=== PATIENT | male | born 1975 | race Caucasian/White ===

== ENCOUNTER 2019-12-23 21:51 | Inpatient (IN) ==
--- NOTE | 2019-12-23 23:13 | History & Physical Report ---
Date of Service December 23, 2019 Assessment & Plan (1) NSTEMI (non-ST elevated myocardial infarction): hypertension, slightly elevated New diagnosis of DM2 AARON on CPAP GERD on PPI Mood disorder, stable Incidental finding of pulmonary nodules on chest x-ray, ongoing tobacco abuse PCU Aspirin, IV heparin Initiate beta-kathy TTE, Cardiology consult RE ACS Check lipid profile, hemoglobin A1c Basal insulin, ISS BG goal [id number], carb count coverage, Diabetic education Nicotine patch PRN Outpatient CT chest imaging for SPN DVT prophylaxis. IV heparin Full code Text document was generated using [employer] voice recognition software. It may contain grammatical or spelling errors. Kindly contact undersigned for clarification of any documentation item in question. Admission and Anticipated Discharge Date Admission Date: December 23, 2019 History of Present Illness Chief Complaint: Chest pain Primary Care Provider: Dr. Luke History obtained from patient and records. Medical history significant for hypertension, AARON on CPAP, GERD, mood disorder, ongoing tobacco abuse. Patient was taking apart PPI no at home this afternoon when he experienced substernal discomfort more severe than usual heartburn with radiation to both elbows with S OB and diaphoreses. No prior episodes in the past. Minimal relief with nitroglycerin given at [facility] emergency room. Initial EKG at [facility] ER without ST elevation. First troponin T was negative. Second troponin T was noted to be 24 (reference range 0-22). Serum glucose noted to be 604. Aspirin and subcutaneous insulin administered at the ER. IV heparin started at the ER for possible ACS. Patient transferred to [facility] for Cardiology services as per patient request. 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 Allergies Allergy/AdvReac Type Severity Reaction Status Date / Time No Known Allergies Allergy Unknown Unverified 10/13/05 11:20 Home Medications Home Medications Medication Instructions Recorded Confirmed Type amlodipine 10 mg PO DAILY 12/23/19 12/23/19 History omeprazole 20 mg PO DAILY 12/23/19 12/23/19 History sertraline 50 mg PO DAILY 12/23/19 12/23/19 History Past Med/Surg History Medical History (Updated 12/24/19 @ 02:09 by Lamine Reynoso MD) Diabetes Social History Preferred Language: Danish Communication Ability: Effective Costume Designer Required: No Beliefs That Will Affect Care: None Current Living Situation: Spouse Other Information That Helps Us Care for You: No Feels Safe at Home: Yes Safety Concerns: Feels Safe At This Time Smoking Status: Light tobacco smoker Hx Alcohol Use: No Hx Substance Use: No Review of Systems Review of Systems: As per HPI, all 10 systems reviewed, all other ROS negative Physical Exam Physical Exam: GENERAL: Comfortable, obese, pleasant, no respiratory distress SKIN: Multiple tattoos, normal color, warm HEENT: Alopecia, pink palpebral conjunctivae, no ptosis, dry buccal mucosa NECK : Supple, short neck, no tenderness CHEST : Decreased breath sounds, expiratory wheezes that cleared on coughing, no tenderness HEART : RRR, no obvious murmurs ABDOMEN: Some distention, nontender EXTREMITIES : No LE swelling/tenderness, no other conspicuous deformities noted NEUROLOGIC : Coherent, no facial asymmetry, no other gross focality Results & Data Results & Data ([facility]) Vital Signs (Past 12 Hours) Vital Signs Pulse Ox 97 12/23/19 23:15 Vital Signs Height Weight Body Mass Index Blood Pressure Blood Pressure Position Temperature Temperature Source 5 ft 10 in 117.9 kg 37.3 158/92 H Sitting 36.5 C Oral 12/23/19 23:29 12/23/19 23:29 12/23/19 23:29 12/23/19 23:29 12/23/19 23:29 12/23/19 23:29 12/23/19 23:29 Pulse Rate Respiratory Rate Pulse Oximetry 70 18 93 12/23/19 23:29 12/23/19 23:29 12/23/19 23:29 Laboratory Results Laboratory Results APTT 48.5 Seconds (21.0-31.0) H* 12/23/19 23:39 PTT Ratio 1.7 12/23/19 23:39 D-Dimer < 190 ug/L FEU (0-500) 12/23/19 23:39 VBG pH 7.43 (7.36-7.41) H 12/23/19 23:39 VBG pCO2 37 mmHg (38-50) L 12/23/19 23:39 VBG pO2 44 mmHg 12/23/19 23:39 VBG HCO3 24 mmol/L 12/23/19 23:39 VBG O2 Saturation 80.9 % 12/23/19 23:39 VBG Base Excess -0.2 mEq/L 12/23/19 23:39 Barometric Pressure 730.3 mm/Hg 12/23/19 23:39 Sodium 135 mmol/L (136-145) L 12/23/19 23:39 Potassium 3.7 mmol/L (3.5-5.1) 12/23/19 23:39 Chloride 101 mmol/L (98-107) 12/23/19 23:39 Carbon Dioxide 25 mmol/L (21-32) 12/23/19 23:39 Anion Gap 9.0 (3-11) 12/23/19 23:39 BUN 12 mg/dl (7-18) 12/23/19 23:39 Creatinine 0.88 mg/dl (0.6-1.4) 12/23/19 23:39 Est Cr Clr Drug Dosing 137.8 ml/min 12/23/19 23:39 Est GFR ( Amer) 121.1 12/23/19 23:39 Est GFR (Non-Af Amer) 104.5 12/23/19 23:39 BUN/Creatinine Ratio 14.0 (10-20) 12/23/19 23:39 Glucose 390 mg/dl (70-99) H* 12/23/19 23:39 POC Glucose 383 mg/dl (70-99) H* 12/24/19 00:01 Calcium 8.6 mg/dl (8.5-10.1) 12/23/19 23:39 Magnesium 1.9 mg/dl (1.8-2.4) 12/23/19 23:39 Total Bilirubin 0.5 mg/dl (0.2-1) 12/23/19 23:39 AST 38 U/L (15-37) H 12/23/19 23:39 ALT 48 U/L (12-78) 12/23/19 23:39 Alkaline Phosphatase 87 U/L (45-117) 12/23/19 23:39 Troponin I 1.290 ng/ml (0-0.045) H* 12/23/19 23:39 Total Protein 7.1 gm/dl (6.4-8.2) 12/23/19 23:39 Albumin 3.7 gm/dl (3.4-5.0) 12/23/19 23:39 Globulin 3.4 gm/dl (2.5-4.0) 12/23/19 23:39 Albumin/Globulin Ratio 1.1 (0.9-2) 12/23/19 23:39 Lipase 172 U/L (73-393) 12/23/19 23:39 Beta-Hydroxybutyric Acd 14.14 mg/dl (0.2-2.81) H 12/23/19 23:39 Procalcitonin < 0.05 ng/ml (0-0.5) 12/23/19 23:39 TSH 0.946 uIu/ml (0.300-4.500) 12/23/19 23:39 Specimen Hemolysis Cancelled 12/23/19 23:39 Diagnostic Findings [facility] (12/23) Chest x-ray : Left upper lung nodules, largest measuring 1.6 cm. EKG as per my interpretation : Rate 75, NSR, normal axis, no ischemia
[2019-12-23] MEDS ORDERED: OXYCODONE HCL IR 5 MG TAB (IMMEDIATE RELEASE) PO PRN (23:15)
[2019-12-23] MEDS ORDERED: ACETAMINOPHEN 325 MG TAB PO PRN (23:15)
[2019-12-23] MEDS ORDERED: LORazepam 0.5 MG/1 ML VIAL IV PRN (23:15)
[2019-12-23] MEDS ORDERED: MoRPHine SULFATE 4 MG/ML 1 ML CARP\\VIAL IV PRN (23:15)
[2019-12-23] MEDS ORDERED: PROMETHAZINE HCL 12.5 MG in SODIUM CHLORIDE 0.9% 50 ML IV PRN (23:15)
[2019-12-23] MEDS ORDERED: NITROGLYCERIN SL 0.4 MG/TAB TAB SL PRN (23:15)
[2019-12-23 23:56] LABS: Base Excess VBG -0.2 mEq/L; Oxygen Saturation VBG 80.9 %; pH VBG 7.43 (7.36-7.41)
[2019-12-24 00:15] LABS: Albumin Level 3.7 gm/dl (3.4-5.0); Calcium 8.6 mg/dl (8.5-10.1); Creatinine Clr Calc Pharmacy 137.8 ml/min; Est GFR (African American) 121.1; Est GFR (Non-African American) 104.5; Magnesium 1.9 mg/dl (1.8-2.4); Potassium 3.7 mmol/L (3.5-5.1)
[2019-12-24 00:22] LABS: D Dimer < 190 ug/L FEU (0-500); Partial Thromboplastin Ratio 1.7
[2019-12-24 00:25] LABS: Partial Thromboplastin Time 48.5 Seconds (21.0-31.0)
[2019-12-24] MEDS ORDERED: DEXTROSE 50% 50 ML SYRINGE IV PRN (00:27)
[2019-12-24] MEDS ORDERED: GLUCOSE 10 TABS/TUBE PO PRN (00:27)
[2019-12-24] MEDS ORDERED: CARBOHYDRATES FOR HYPOGLYCEMIA PO PRN (00:27)
[2019-12-24] MEDS ORDERED: GLUCOSE 40% GEL 15 GM TUBE PO PRN (00:27)
[2019-12-24] MEDS ORDERED: GLUCAGON FOR INJ 1 MG VIAL SQ PRN (00:27)
[2019-12-24] MEDS ORDERED: METOPROLOL TARTRATE 25 MG TAB PO SCH (00:30)
[2019-12-24 00:33] LABS: Albumin Globulin Ratio 1.1 (0.9-2); Bilirubin,Total 0.5 mg/dl (0.2-1); Globulin 3.4 gm/dl (2.5-4.0); Thyroid Stimulating Hormone 0.946 uIu/ml (0.300-4.500); Total Protein 7.1 gm/dl (6.4-8.2); Troponin I 1.29 ng/ml (0-0.045)
[2019-12-24 00:53] LABS: Beta-Hydroxybutyrate 14.14 mg/dl (0.2-2.81)
[2019-12-24] MEDS ORDERED: INSULIN GLARGINE SOLOSTAR 100 UNITS/ML 3 ML PEN SC STA (00:58)
[2019-12-24] MEDS ORDERED: HEPARIN SODIUM/DEXTROSE 25,000 UNITS/500 ML BAG IV SCH (01:00)
[2019-12-24] MEDS ORDERED: Heparin IV Standard *NO* Bolus IV STA (01:00)
[2019-12-24] MEDS: LACTATED RINGER'S 1,000 ML IV SCH ×3 (01:46→19:49)
[2019-12-24] MEDS: INSULIN ASPART 100 UNITS/ML 3 ML PEN SC SCH ×6 (01:48→23:51)
[2019-12-24] MEDS ORDERED: ALBUT/IPRATROP 3MG/0.5MG NEB 3 ML VIAL NEB PRN (02:57)
[2019-12-24 05:49] LABS: Basophils # (auto) 0.07 K/uL (0-0.2); Basophils % (auto) 0.4 %; Eosinophils # (auto) 0.38 K/uL (0-0.5); Eosinophils % (auto) 2.4 %; Hematocrit (blood only) 45.1 % (42-52); Hemoglobin 16.9 g/dL (14.0-18.0); Immature Granulocytes # (auto) 0.06 K/uL (0.00-0.02); Immature Granulocytes % (auto) 0.4 %; Lymphocytes # (auto) 3.63 K/uL (1.2-3.4); Lymphocytes % (auto) 22.5 %; Mean Corpuscular Hemoglobin 30.7 pg (25-34); Mean Corpuscular Hgb Conc 37.5 g/dL (32-36); Mean Platelet Volume 10.8 fL (7.4-10.4); Monocytes # (auto) 1.17 K/uL (0.11-0.59); Monocytes % (auto) 7.3 %; Platelet Count 224 K/uL (130-400); RDW Coefficient of Variation 12.3 % (11.5-14.5); White Blood Count 16.11 K/uL (4.8-10.8)
[2019-12-24 06:04] LABS: Partial Thromboplastin Ratio 1.5; Partial Thromboplastin Time 41.7 Seconds (21.0-31.0)
[2019-12-24 06:13] LABS: BUN Creatinine Ratio 13.3 (10-20); Calcium 8.5 mg/dl (8.5-10.1); Creatinine Clr Calc Pharmacy 155.5 ml/min; Est GFR (African American) 127.2; Est GFR (Non-African American) 109.8; Potassium 3.6 mmol/L (3.5-5.1)
[2019-12-24 06:24] LABS: Troponin I 14.1 ng/ml (0-0.045)
[2019-12-24] MEDS ORDERED: HEPARIN IV BOLUS 4,000 UNITS in SYRINGE 0 ML IV STA (06:43)
[2019-12-24] MEDS ORDERED: POTASSIUM CHLORIDE 20 MEQ TABCR PO STA (06:55)
[2019-12-24] MEDS ORDERED: PERFLUTREN LIPID MICROSPHERE (DEFINITY) IV ONE (07:31)
[2019-12-24] MEDS: PANTOprazole 40 MG TAB PO SCH (07:49)
[2019-12-24] MEDS: AMLODIPINE BESYLATE 5 MG TAB PO SCH (07:51)
[2019-12-24] MEDS: ASPIRIN 81 MG ECTAB PO SCH (07:51)
[2019-12-24] MEDS: SERTRALINE HCL 50 MG TABLET PO SCH (07:52)
[2019-12-24] MEDS ORDERED: PHARMACY GLYCEMIC MGMT CONSULT PRN (08:12)
--- NOTE | 2019-12-24 08:59 | XCELERA ---
[id number]
[2019-12-24] MEDS ORDERED: ATORVASTATIN 40 MG TAB PO SCH (09:00)
[2019-12-24] MEDS ORDERED: METOPROLOL SUCC 25MG EXT REL TAB PO SCH (09:00)
[2019-12-24] MEDS ORDERED: INSULIN GLARGINE SOLOSTAR 100 UNITS/ML 3 ML PEN SC SCH ×2 (09:00→21:00)
[2019-12-24] MEDS ORDERED: NITROGLYCERIN SL 0.4 MG/TAB TAB ONE (09:55)
[2019-12-24] MEDS: NITROGLYCERIN 2% OINTMENT 30GM TUBE ONE ×2 (10:37→10:41)
[2019-12-24] MEDS: METOPROLOL TARTRATE 25 MG TAB PO SCH ×2 (10:38→19:49)
--- NOTE | 2019-12-24 10:38 | Electrocardiogram Report ---
Test Reason : Blood Pressure : / mmHG Vent. Rate : 068 BPM Atrial Rate : 068 BPM P-R Int : 146 ms QRS Dur : 096 ms QT Int : 388 ms P-R-T Axes : 015 075 027 degrees QTc Int : 412 ms Normal sinus rhythm Anterior injury pattern * ACUTE [place] Abnormal ECG Confirmed by Lizandro Cuello ([id number]) on 12/24/2019 10:37:57 AM Referred By: Lamine Reynoso Confirmed By:Lizandro Cuello
[2019-12-24] MEDS: NITROGLYCERIN 2% OINTMENT 30GM TUBE EXT SCH ×3 (10:39→23:10)
--- NOTE | 2019-12-24 10:52 | Electrocardiogram Report ---
Test Reason : Blood Pressure : / mmHG Vent. Rate : 064 BPM Atrial Rate : 064 BPM P-R Int : 148 ms QRS Dur : 094 ms QT Int : 396 ms P-R-T Axes : 047 111 042 degrees QTc Int : 408 ms Sinus rhythm with marked sinus arrhythmia Anterolateral infarct (cited on or before 23-DEC-2019) Abnormal ECG When compared with ECG of 23-DEC-2019 23:14, (unconfirmed) Serial changes of evolving Anterolateral infarct Confirmed by Lizandro Cuello ([id number]) on 12/24/2019 10:52:26 AM Referred By: Lamine Reynoso Confirmed By:Lizandro Cuello
--- NOTE | 2019-12-24 11:07 | Pharmacy Report ---
Glycemic Control Consultation - Date of Service December 24, 2019 - Scope Scope: Glycemic Pharmacist consulted for glycemic control and to write orders per [facility] inpatient glycemic control protocol. - Objective Weight: 117.9 kg Accuchecks BSG (last 24hrs): 12/23/19 12/24/19 12/24/19 23:39 00:01 01:44 Glucose 390 H* POC Glucose 383 H* 368 H* 12/24/19 12/24/19 05:33 06:39 Glucose 297 H POC Glucose 318 H* Laboratory Data (last 24hrs): 12/23/19 12/24/19 23:39 05:33 Potassium 3.7 3.6 Carbon Dioxide 25 25 Anion Gap 9.0 6.0 Creatinine 0.88 0.78 Est Cr Clr Drug Dosing 137.8 155.5 Beta-Hydroxybutyric Acd 14.14 H - Recent Pertinent Medications Outpatient Anti-diabetic Regimen: * n/a * A1c = pending Risk Factors for Insulin Resistance: * Diet: npo - Assessment & Plan Assessment & Plan: ASSESSMENT: * Patient transfer from OSH with NSTEMI. New diagnosis of DM2. Per provider notes BSG at OSH >600 and had been given SQ insulin * Pharmacy consulted to help with glycemic management during admission. 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 BSG trending down at 242 / covered with novolog with lunch and diet resumed * Will add scale for Lantus this evening if BSGs remain elevated PLAN FOR INPATIENT GLYCEMIC CONTROL: * Basal insulin * Lantus 30 units this AM given - plan to add small scale for Lantus HS to give only if BSG >200 * Bolus insulin - tighten * NovoLog per scale ACHS or Q6hrs while NPO * Goal Range: Low 110 mg/dL - High 140 mg/dL * Correction Factor: 20 mg/dL/unit * Nutritional / Prandial insulin per carb ratio of 1 unit per 7 grams CHO consumed * Please note that the plan above was derived based on current level of insulin resistance and hospital stress. These recommendations are appropriate for inpatient admission only. Plan of care upon discharge will need to be reassessed to avoid potential outpatient hypo/hyperglycemia. Thank you.
[2019-12-24] MEDS ORDERED: fentaNYL citrate 100 MCG/2 ML VIAL ONE (11:25)
[2019-12-24] MEDS ORDERED: NiCARDipine HCL INJ 2.5 MG/ML 10 ML AMP ONE (11:25)
[2019-12-24] MEDS ORDERED: HEPARIN (PORCINE) 1000 UNIT/ML 10 ML (CATH LAB USE ONLY) ONE (11:25)
[2019-12-24] MEDS ORDERED: NITROGLYCERIN/D5W 100MCG/ML 20ML SYR ONE (11:26)
[2019-12-24] MEDS ORDERED: MIDAZOLAM HCL 1 MG/ML 2ML VIAL ONE (11:26)
[2019-12-24] MEDS ORDERED: BIVALIRUDIN 250 MG VIAL (CATH LAB ONLY) ONE (11:29)
--- NOTE | 2019-12-24 11:45 | Pre Anesthesia Assessment ---
Date of Service December 24, 2019 Pre Sedation Assessment Vital Signs Temp Pulse Pulse Resp BP Pulse Ox Pulse Ox 12/24/19 08:53 67 12/24/19 08:49 94 12/24/19 08:00 94 12/24/19 07:38 36.5 C 67 19 167/103 H 94 12/24/19 03:04 36.7 C 65 18 143/84 H 95 12/23/19 23:29 36.5 C 70 18 158/92 H 93 12/23/19 23:15 97 Cardiovascular RRR, no murmur, no edema Respiratory normal respiratory effort, lungs clear to auscultation Pre-Sedation Airway Assessment Smoking Status: Light tobacco smoker Mallampati Class: II ASA: ASA2 Procedure Planning Contraindications for Sedation: none Current Medications Reviewed: Yes Notes The planned sedation has been discussed with the patient. Informed Consent was obtained. I have identified the patient, determined the appropriateness of sedation and have assessed the patient immediately prior to the procedure. All medicine(s) and interventions are by my order.
--- NOTE | 2019-12-24 12:24 | Hospitalist Progress Note ---
Date of Service December 24, 2019 Assessment & Plan (1) NSTEMI (non-ST elevated myocardial infarction): NSTEMI Risk factors: H/O HTN, HLP, Tobacco use disorder, DM II, Obesity Troponin:1.2>>14.1 EKG shows: Sinus rhythm with sinus arrhythmia, anterolateral infarct ECHO: pending Trend serial cardiac enzymes, repeat EKG Continue IV heparin Continue Start Aspirin, lipitor, metoprolol Supplemental Oxygen PRN Keep him NPO for now Cardiology consulted Planned for cardiac cath today Hypertension Continue Amlodipine, Metoprolol Monitor BP Hyperlipidemia Continue Lipitor New diagnosis of DM II HbA1C: pending primary special educator/Glycemic Pharmacy consulted Continue Insulin therapy Monitor BGs AARON Continue CPAP at bedtime GERD Continue PPI Mood disorder Continue Sertraline Tobacco use Disorder Refuses Nicotine patch Counselled to quit Lung Nodule Needs follow up as outpatient DVT Px: on IV heparin Code Status Full code Disposition Expect to discharge home when medically stable Admission and Anticipated Discharge Date Admission Date: December 23, 2019 Subjective Patient is seen and examined at bedside Chest pain much improved--rates it 1-2/10 Dyspnea resolved Denies any nausea, dizziness, abd pain Offers no other complaints On IV heparin ggt Planned for Cardiac cath today Review of Systems Review of Systems: All systems reviewed & are unremarkable except as noted in HPI & below Physical Exam Physical Exam: Physical Exam: Vitals signs as noted above General Appearance:Well built and nourished, no apparent distress Head: normocephalic, Atraumatic Eyes: normal inspection, EOMI, PERRL Neck: supple, Trachea midline Respiratory/Chest: Normal breath sounds, CTA, No accessory muscle use Cardiovascular: S1, S2, No murmur Abdomen/GI:Soft, Non tender, Bowel sounds present Extremities/Musculoskelatal:normal inspection, no edema Neurologic/Psych:AAOX3, grossly no focal neurological deficits Skin: normal color, warm, multiple tattoos Results & Data Results & Data ([facility]) Vital Signs (Past 12 Hours) Vital Signs Temp Pulse Pulse Resp BP Pulse Ox Pulse Ox 12/24/19 08:53 67 12/24/19 08:49 94 12/24/19 08:00 94 12/24/19 07:38 36.5 C 67 19 167/103 H 94 12/24/19 03:04 36.7 C 65 18 143/84 H 95 Laboratory Results Short CBC 12/24/19 Range/Units 05:33 WBC 16.11 H (4.8-10.8) K/uL Hgb 16.9 (14.0-18.0) g/dL Hct 45.1 (42-52) % Plt Count 224 (130-400) K/uL BMP 12/23/19 12/24/19 23:39 05:33 Sodium 135 L 136 Potassium 3.7 3.6 Chloride 101 105 Carbon Dioxide 25 25 BUN 12 10 Creatinine 0.88 0.78 Glucose 390 H* 297 H Calcium 8.6 8.5 Cardiac Enzymes 12/23/19 12/24/19 Range/Units 23:39 05:33 Troponin I 1.290 H* 14.100 H* (0-0.045) ng/ml Liver Function 12/23/19 Range/Units 23:39 Total Bilirubin 0.5 (0.2-1) mg/dl AST 38 H (15-37) U/L ALT 48 (12-78) U/L Alkaline Phosphatase 87 (45-117) U/L Albumin 3.7 (3.4-5.0) gm/dl
[2019-12-24] MEDS ORDERED: TICAGRELOR 90 MG TAB PO ONE (12:26)
--- NOTE | 2019-12-24 12:28 | Cardiology Consultation ---
Date of Consultation December 24, 2019 Assessment & Plan (1) NSTEMI (non-ST elevated myocardial infarction): (2) Diabetes mellitus: (3) HTN (hypertension): (4) Tobacco abuse: Patient treated with sublingual nitroglycerin, topical nitrates, and oral metoprolol at bedside. Chest discomfort improved. ST segments have returned to baseline. Echocardiogram reviewed demonstrating LAD territory wall motion abnormality with mildly reduced LV systolic function. Recommend urgent cardiac catheterization. Patient agreeable. Risks, benefits, alternatives to procedure discussed at length. I also discussed patient's clinical situation and treatment recommendations with his via 'facetime' communication. Case discussed with interventional cardiology who is in agreement for urgent cardiac catheterization with PCI at this time. Diabetes management as per internal medicine. Smoking cessation advised. 45 minutes critical care time spent at bedside evaluation, reviewing testing, discussion with consulting physician and family. History of Present Illness Reason for Consultation: NSTEMI Requesting Physician: Dr. Blair Merritt Attending Physician: Kenny Santillan MD History of Present Illness 44-year-old patient presented to [place] emergency department with chest pain. Patient treated with aspirin, nitroglycerin, and IV heparin. Patient reports little improvement of pain while in [place]. He came to [facility] and was treated with IV heparin and aspirin. No chest discomfort reported to nursing overnight, however, patient reports 2/10 chest discomfort upon my arrival to the bedside. He appears comfortable. Initial episode of chest pain occurred in late afternoon 12/23/19. Describes a severe substernal tightness radiating to the bilateral upper extremities associated with nausea, diaphoresis, and shortness of breath. No palpitations, lightheadedness, dizziness, syncope, or near syncope. Patient treated with sublingual nitroglycerin, topical nitrates, and oral metoprolol at the bedside. His discomfort has reduced to 0.5/10. States he is feeling much more comfortable. ECG performed earlier this morning demonstrates "doming" of the anterior ST segments. This subtle ST elevation over Q waves has improved on repeat ECG. Patient denies personal history of diabetes, however, blood sugar markedly elevated on presentation. Denies personal history of coronary disease, congestive heart failure, rheumatic fever as a child, or hypertension. Admits to smoking 1 pack of cigarettes per day. Denies family history of premature coronary artery disease, however, admits to knowing little about his father. No orthopnea, PND, lower extremity edema, or claudication. Allergies Allergy/AdvReac Type Severity Reaction Status Date / Time No Known Allergies Allergy Unknown Unverified 10/13/05 11:20 Home Medications Home Medications Medication Instructions Recorded Confirmed Type amlodipine 10 mg PO DAILY 12/23/19 12/23/19 History omeprazole 20 mg PO DAILY 12/23/19 12/23/19 History sertraline 50 mg PO DAILY 12/23/19 12/23/19 History Patient History Medical History Diabetes Social History Preferred Language: Sami Communication Ability: Effective Senior Software Quality Analyst Required: No Beliefs That Will Affect Care: None Current Living Situation: Spouse Other Information That Helps Us Care for You: No Feels Safe at Home: Yes Safety Concerns: Feels Safe At This Time Smoking Status: Light tobacco smoker Hx Alcohol Use: No Hx Substance Use: No Review of Systems Review of Systems: All systems reviewed & are unremarkable except as noted in HPI & below Physical Exam Constitutional: well developed and + obese Eyes: + anicteric sclerae; no conjunctival abnormality and no scleral abnormality Respiratory: normal respiratory effort; no labored breathing, no retractions and does not use accessory muscles Auscultation: no diminished lung sounds, no crackles, no rales, no rhonchi and no wheezes Cardiovascular: Rate/Rhythm: regular rate and regular rhythm Heart Sounds: normal S1 and normal S2; no murmur and no cardiac rub Vessels: no JVD Extremities: + edema Gastrointestinal (Abdomen): Inspection/Auscultation: normal bowel sounds; abdomen not distended Percussion/Palpation: abdomen soft; abdomen nontender, no guarding and abdomen not rigid Musculoskeletal: Extremities: strength 5/5 throughout; no cyanosis and no clubbing Skin: no rashes, warm and dry Neurologic: moves all extremities; no focal motor deficits Psychiatric: A+Ox3, euthymic affect Results & Data ([facility]) Vital Signs (Past 12 Hours) Vital Signs Temp Pulse Pulse Resp BP Pulse Ox Pulse Ox 12/24/19 08:53 67 12/24/19 08:49 94 12/24/19 08:00 94 12/24/19 07:38 36.5 C 67 19 167/103 H 94 12/24/19 03:04 36.7 C 65 18 143/84 H 95 (1) Diabetes mellitus Diabetes mellitus complication status: with hyperglycemia Diabetes mellitus prison insulin use: without prison use Diabetes mellitus type: type 2 Qualified Code(s): E11.65 - Type 2 diabetes mellitus with hyperglycemia (2) HTN (hypertension) Hypertension type: essential hypertension Qualified Code(s): I10 - Essential (primary) hypertension
--- NOTE | 2019-12-24 12:37 | Post Anesthesia Assessment ---
Date of Service December 24, 2019 Post Sedation Assessment Vital Signs Temp Pulse Pulse Resp BP Pulse Ox Pulse Ox 12/24/19 08:53 67 12/24/19 08:49 94 12/24/19 08:00 94 12/24/19 07:38 36.5 C 67 19 167/103 H 94 12/24/19 03:04 36.7 C 65 18 143/84 H 95 12/23/19 23:29 36.5 C 70 18 158/92 H 93 12/23/19 23:15 97 Recovery Score Activity: Moves 4 extremities Respiration: Deep Breath/Cough Consciousness: Fully Awake Discharge Sedation Level of Care: Phase I Post Sedation Plan On clinical assessment, the patient appears to have tolerated the sedation without complications. Patient is recovering as anticipated. Patient will continue to be monitored by nursing and may be discharged when sedation discharge criteria are met per below protocol. Upon Completions of procedure up to 15 minutes continue every 5 minute vital signs and the P.A.R. score; then discharge to a Phase I or Fast Track to Phase II per the following guidelines: * Discharge Patient to appropriate Phase II area if PAR is 8 or greater or return to pre- procedure baseline. The post - procedure orders will be as directed. * If PAR score is less than 8 or not return to pre-procedure baseline then patient will follow Phase I monitoring till PAR is reached for Phase II. The Phase I may be done in procedure room or may call to secure a Phase I area. * If naloxone or flumazenil are used for reversal, hold in Phase I for continued monitoring from when last reversal dose was given for a minimum of 60 minutes or longer pending the nurse and/or physician discretion of patient condition before discharge to Phase II. Please call the Sedation Physician to re-evaluate and complete post-note for discharge to Phase II area. Do NOT discharge from procedure sedation or Phase 1 until post- sedation evaluation note is complete by procedure /sedation MD Sedation Discharge Instructions to be given to the patient at discharge to home.
--- NOTE | 2019-12-24 12:39 | Post Operative Brief Note ---
Cardiology Brief Post Op Date of Surgery December 24, 2019 Pre & Post Diagnosis Operation Date: 12/24/2019 Acute coronary syndrome/non-ST elevation myocardial infarction Procedure Left heart catheterization, coronary angiography, PCI of occluded proximal left artery descending artery with placement of 4 mm x 18 mm Xience drug-eluting stent. Flavorer Kale Hare MD Humidifier Attendant labeling associate staff Estimated Blood Loss 15 Findings Consistent with Post-Op Diagnosis 44-year-old gentleman, presented with stuttering chest discomfort, and EKG changes concerning for recent anterior wall myocardial infarction. Cardiac catheterization revealed 100% occluded proximal left anterior descending artery with faint collaterals noted from right coronary artery. PCI was performed to proximal left anterior descending artery using 4 mm x 18 mm Xience Shantell drug-eluting stent, this was postdilated with 4 mm NC balloon with excellent angiographic results and sikh of DIOMEDES-3 flow in the distal part of left atrial descending artery. Left circumflex, diagonal vessels and right coronary artery only has minimal to mild diffuse disease of less than 30% severity. Admit to telemetry floor for close observation, patient will be started on aspirin and Brilinta for dual antiplatelet therapy, further risk factor modification and aggressive diabetes control per primary care team. Disposition Disposition: PCU
[2019-12-24] MEDS ORDERED: ACETAMINOPHEN 325 MG TAB PO PRN (12:49)
[2019-12-24] MEDS ORDERED: ONDANSETRON INJ 2 MG/ML 2 ML VIAL IV PRN (12:49)
--- NOTE | 2019-12-24 12:49 | Cardiac Catheterization ---
[facility] Data: Quality Assurance Tester Cardiac Status Clinical evaluation leading to the procedure CAD Presenation: Non STEMI Diagnostic Physicians Name: Kale Hare MD Closure Device Recommendations: Medical Therapy and/or Counseling and PCI without planned CABG Cardiac Cath Procedure Full Procedure Date December 24, 2019 Pre-Procedure Diagnosis Pre-Procedure Diagnosis: Non STEMI AUC Score AUC Score: 9 Post-Procedure Diagnosis Post-Procedure Diagnosis: Successful PCI Procedure(s) Performed Procedure(s) Performed: Coronary Angiography, Left Heart Cath and Drug Eluting Stent Api Architect Kale Hare MD Estimated Blood Loss Estimated Blood Loss: 15 ccs Medication(s) Medication(s): Aspirin and Bivalirudin Medication(s): ticagrelor Summary of Findings 44-year-old gentleman, presented with stuttering chest discomfort, and EKG changes concerning for recent anterior wall myocardial infarction. Cardiac catheterization revealed 100% occluded proximal left anterior descending artery with faint collaterals noted from right coronary artery. PCI was performed to proximal left anterior descending artery using 4 mm x 18 mm Xience Shantell drug-eluting stent, this was postdilated with 4 mm NC balloon with excellent angiographic results and mandaeism of DIOMEDES-3 flow in the distal part of left atrial descending artery. Left circumflex, diagonal vessels and right coronary artery only has minimal to mild diffuse disease of less than 30% severity. Admit to telemetry floor for close observation, patient will be started on aspirin and Brilinta for dual antiplatelet therapy, further risk factor modification and aggressive diabetes control per primary care team. Hemodynamics Rest Ao:: 121/86 Final Ao: 123/84 LV: 113/4 Recommendations Recommendations: Medical Therapy and/or Counseling and PCI without planned CABG Specimens Specimens: None Radiation Exposure (mGy) 3627 Contrast (mls) 240 Procedural Complication(s) None Disposition PCU I attest to the content of the Intraoperative Record and any orders documented therein. Any exceptions are noted below. PG Care Time/CCT Total # of Minutes Spent Total Time Spent with Patient: Total time spent is greater than 50% in coordination of care (as documented) at patient's floor/unit and/or counseling patient:
[2019-12-24 15:08] LABS: Partial Thromboplastin Ratio 1.7
[2019-12-24 15:19] LABS: Partial Thromboplastin Time 48.4 Seconds (21.0-31.0)
[2019-12-24] MEDS: TICAGRELOR 90 MG TAB PO SCH (19:50)
[2019-12-25] MEDS: INSULIN ASPART 100 UNITS/ML 3 ML PEN SC SCH ×5 (04:04→21:27)
[2019-12-25] MEDS: NITROGLYCERIN 2% OINTMENT 30GM TUBE EXT SCH ×2 (04:05→12:47)
[2019-12-25 05:52] LABS: Estimated Average Glucose 298 mg/dl
[2019-12-25 06:41] LABS: Hematocrit (blood only) 43.1 % (42-52); Hemoglobin 15.8 g/dL (14.0-18.0); Mean Corpuscular Hemoglobin 30.6 pg (25-34); Mean Corpuscular Hgb Conc 36.7 g/dL (32-36); Mean Corpuscular Volume 83.4 fL (80-100); Mean Platelet Volume 11.1 fL (7.4-10.4); Platelet Count 218 K/uL (130-400); RDW Coefficient of Variation 12.7 % (11.5-14.5); RDW Standard Deviation 38.2 fL (36.4-46.3); Red Blood Count 5.17 M/uL (4.7-6.1); White Blood Count 12.96 K/uL (4.8-10.8)
[2019-12-25 06:54] LABS: Partial Thromboplastin Ratio 1.1; Partial Thromboplastin Time 29.5 Seconds (21.0-31.0)
[2019-12-25 07:12] LABS: BUN Creatinine Ratio 16.6 (10-20); Calcium 8.5 mg/dl (8.5-10.1); Creatinine Clr Calc Pharmacy 155.2 ml/min; Est GFR (African American) 127.2; Est GFR (Non-African American) 109.8; Magnesium 1.9 mg/dl (1.8-2.4); Potassium 3.4 mmol/L (3.5-5.1)
[2019-12-25] MEDS ORDERED: POTASSIUM CHLORIDE 20 MEQ TABCR PO STA (08:04)
[2019-12-25] MEDS: TICAGRELOR 90 MG TAB PO SCH ×2 (08:27→21:26)
[2019-12-25] MEDS: PANTOprazole 40 MG TAB PO SCH (08:27)
[2019-12-25] MEDS: ASPIRIN 81 MG ECTAB PO SCH (08:28)
[2019-12-25] MEDS: SERTRALINE HCL 50 MG TABLET PO SCH (08:28)
[2019-12-25] MEDS: METOPROLOL TARTRATE 25 MG TAB PO SCH ×2 (08:28→21:25)
[2019-12-25] MEDS: INSULIN GLARGINE SOLOSTAR 100 UNITS/ML 3 ML PEN SC SCH ×2 (08:30→21:24)
[2019-12-25] MEDS: AMLODIPINE BESYLATE 5 MG TAB PO SCH (08:33)
[2019-12-25] MEDS ORDERED: INSULIN GLARGINE SOLOSTAR 100 UNITS/ML 3 ML PEN SC SCH (09:00)
[2019-12-25] MEDS ORDERED: ASPIRIN 81 MG ECTAB PO SCH (09:00)
[2019-12-25] MEDS ORDERED: ATORVASTATIN 40 MG TAB PO SCH (09:00)
--- NOTE | 2019-12-25 09:46 | Pharmacy Report ---
Pharmacy Glycemic Short Note 2 - Date of Service December 25, 2019 - Glycemic Short BSG Results (Last 24 hours): 12/24/19 12/24/19 12/24/19 13:16 16:09 20:00 Glucose POC Glucose 242 H 241 H 227 H 12/24/19 12/25/19 12/25/19 23:35 03:54 05:44 Glucose 213 H POC Glucose 225 H 242 H 12/25/19 07:28 Glucose POC Glucose 215 H ASSESSMENT: 12/24: * POD #1 s/p cardiac catheterization, HbA1c was 12.0% on 12/23/2019 * Patient received total of 85 units of insulin yesterday, 40 basal + 45 bolus * BSGs ranged 225-242 mg/dL post-op * Fasting BSG improved this AM at 213 mg/dL * Will slightly increase basal insulin today per scale and tighten CF/CR 12/23: * Patient transfer from OSH with NSTEMI. New diagnosis of DM2. Per provider notes BSG at OSH >600 and had been given SQ insulin * Pharmacy consulted to help with glycemic management during admission. 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 lab[address] this morning - post [address] BSG trending down at 242 / covered with novolog with lunch and diet resumed * Will add scale for Lantus this evening if BSGs remain elevated PLAN FOR INPATIENT GLYCEMIC CONTROL: * Basal insulin - BID * Lantus 20 units for BSG less than 180 mg/dL * Lantus 25 units for BSG 180-250 mg/dL * Lantus 30 units for BSG greater than 250 mg/dL * Bolus insulin * NovoLog per scale ACHS or Q6hrs while NPO * Goal Range: Low 110 mg/dL - High 140 mg/dL * Correction Factor: 15 mg/dL/unit * Nutritional / Prandial insulin per carb ratio of 1 unit per 5 grams CHO consumed PLAN FOR DISCHARGE: * Patient will require insulin upon discharge given A1c of 12.0%
--- NOTE | 2019-12-25 10:20 | Electrocardiogram Report ---
Test Reason : Blood Pressure : / mmHG Vent. Rate : 071 BPM Atrial Rate : 071 BPM P-R Int : 146 ms QRS Dur : 090 ms QT Int : 406 ms P-R-T Axes : 035 092 030 degrees QTc Int : 441 ms Sinus rhythm with marked sinus arrhythmia Left atrial enlargement Rightward axis Cannot rule out Inferior infarct Anterolateral infarct (cited on or before 23-DEC-2019) Abnormal ECG When compared with ECG of 24-DEC-2019 06:15, Serial changes of evolving Anterolateral infarct Confirmed by Lizandro Cuello ([id number]) on 12/25/2019 10:19:57 AM Referred By: Lamine Reynoso Confirmed By:Lizandro Cuello
--- NOTE | 2019-12-25 10:25 | Electrocardiogram Report ---
Test Reason : Blood Pressure : / mmHG Vent. Rate : 066 BPM Atrial Rate : 066 BPM P-R Int : 146 ms QRS Dur : 096 ms QT Int : 404 ms P-R-T Axes : 020 110 037 degrees QTc Int : 423 ms Normal sinus rhythm Anterolateral infarct (cited on or before 23-DEC-2019) Abnormal ECG When compared with ECG of 24-DEC-2019 10:13, (unconfirmed) Borderline criteria for Inferior infarct are no longer Present ST elevation in the anterolateral leads more prominent Confirmed by Lizandro Cuello ([id number]) on 12/25/2019 10:25:01 AM Referred By: Lamine Reynoso Confirmed By:Lizandro Cuello
--- NOTE | 2019-12-25 10:42 | Electrocardiogram Report ---
Test Reason : Blood Pressure : / mmHG Vent. Rate : 067 BPM Atrial Rate : 067 BPM P-R Int : 150 ms QRS Dur : 084 ms QT Int : 410 ms P-R-T Axes : 039 092 078 degrees QTc Int : 433 ms Normal sinus rhythm Rightward axis Anterior infarct (cited on or before 23-DEC-2019) Abnormal ECG When compared with ECG of 24-DEC-2019 13:04, (unconfirmed) Serial changes of evolving Anterior infarct Present Confirmed by Lizandro Cuello ([id number]) on 12/25/2019 10:42:08 AM Referred By: Lamine Reynoso Confirmed By:Lizandro Cuello
--- NOTE | 2019-12-25 11:27 | Cardiology Progress Note ---
Date of Service December 25, 2019 Assessment & Plan (1) NSTEMI (non-ST elevated myocardial infarction): (2) Diabetes mellitus: (3) HTN (hypertension): (4) Tobacco abuse: I do long discussion with the patient regarding his myocardial infarction and cardiovascular status. Discussed importance of continuing dual antiplatelet therapy for minimum of 1 year post percutaneous intervention in the setting of myocardial infarction. Transition metoprolol tartrate to succinate formulation. Continue high intensity statin therapy. Reduce amlodipine to 5 mg daily to allow for addition of ARNOLDO inhibitor given new onset diabetes and ischemic cardiomyopathy. He appears compensated and euvolemic at this time. Recommend cardiac rehab when available. I discussed post cardiac catheterization activity restrictions as noted below. In approximately 5 days he will begin a regular walking program. Appropriate use of sublingual nitroglycerin reviewed. Diabetes management as per internal medicine. Metformin should be avoided for an additional 24 hours post iodinated contrast injection. I will schedule close cardiac evaluation in 1 week via telemedicine. Subjective Patient seen and examined at the bedside. No recurrent chest discomfort ove rnight. States he is feeling well at this time. Ambulating in the room without exertional symptoms. No recurrent ventricular tachycardia on telemetry. Repeat ECG demonstrates age-indeterminate anterior infarct. Tolerating current medications including aspirin, Brilinta, metoprolol, and atorvastatin. Denies palpitations, lightheadedness, orthopnea, PND, or lower extremity edema. Notes mild right anterior wrist discomfort without ecchymosis or hematoma. Review of Systems Review of Systems: All systems reviewed & are unremarkable except as noted in HPI & below Physical Exam Constitutional: well developed and + obese Eyes: + anicteric sclerae; no conjunctival abnormality and no scleral abnormality Respiratory: normal respiratory effort; no labored breathing, no retractions and does not use accessory muscles Auscultation: no diminished lung sounds, no crackles, no rales, no rhonchi and no wheezes Cardiovascular: Rate/Rhythm: regular rate and regular rhythm Heart Sounds: normal S1 and normal S2; no murmur and no cardiac rub Vessels: no JVD Extremities: + edema Gastrointestinal (Abdomen): Inspection/Auscultation: normal bowel sounds; abdomen not distended Percussion/Palpation: abdomen soft; abdomen nontender, no guarding and abdomen not rigid Musculoskeletal: Extremities: strength 5/5 throughout; no cyanosis and no clubbing Skin: no rashes, warm and dry Palpable right radial pulse. No ecchymosis or hematoma. Neurologic: CN's II-XI intact bilaterally and moves all extremities; no focal motor deficits Psychiatric: A+Ox3, euthymic affect Results & Data Vital Signs (Past 12 Hours) Vital Signs Temp Pulse Pulse Resp BP Pulse Ox 12/25/19 08:00 74 12/25/19 07:06 36.5 C 78 20 108/66 95 12/25/19 03:57 36.7 C 70 18 130/79 96 12/25/19 02:19 71 12/25/19 01:11 18 97 12/24/19 23:28 36.9 C 78 18 117/81 97 (1) Diabetes mellitus Diabetes mellitus complication status: with hyperglycemia Diabetes mellitus fdc insulin use: without fdc use Diabetes mellitus type: type 2 Qualified Code(s): E11.65 - Type 2 diabetes mellitus with hyperglycemia (2) HTN (hypertension) Hypertension type: essential hypertension Qualified Code(s): I10 - Essential (primary) hypertension
[2019-12-25] MEDS: lisinopriL 5 MG TAB PO SCH (11:49)
--- NOTE | 2019-12-25 11:58 | Hospitalist Progress Note ---
Date of Service December 25, 2019 Assessment & Plan (1) NSTEMI (non-ST elevated myocardial infarction): NSTEMI S/P PCI: KARISSA to proximal left anterior descending artery. POD #1 Risk factors: H/O HTN, HLP, Tobacco use disorder, DM II, Obesity Troponin:1.2>>14.1>>200>>22 EKG shows: Sinus rhythm with sinus arrhythmia, anterolateral infarct ECHO: Left ventricle systolic function is mildly reduced. Ejection fraction 45 to 50%. There is moderate size wall motion abnormality involving the a nteroseptal, anterior wall, inferior septum, and apex with hypokinesis to akinesis of the segments. There is mild mitral regurgitation. There is trace tricuspid regurgitation. Doppler findings do not suggest pulmonary hypertension. 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 AARON Continue CPAP at bedtime GERD Continue PPI Mood disorder Continue Sertraline Tobacco use Disorder Refuses Nicotine patch Counselled to quit Lung Nodule Needs follow up as outpatient DVT Px: Heparin SQ Code Status Full code Disposition Expect to discharge home when medically stable Script needed upon discharge: 1) OneTouch Verio test strips 2) OneTouch Delica lancets 3) BD Ginger pen needles - 4mm (5/32") x 32G (0.23mm) Admission and Anticipated Discharge Date Admission Date: December 23, 2019 Subjective Patient is seen and examined at bedside Doing well today States chest pain resolved Denies any SOB, nausea, dizziness, abd pain Offers no other complaints Review of Systems Review of Systems: All systems reviewed & are unremarkable except as noted in HPI & below Physical Exam Physical Exam: Physical Exam: Vitals signs as noted above General Appearance:Well built and nourished, no apparent distress Head: normocephalic, Atraumatic Eyes: normal inspection, EOMI, PERRL Neck: supple, Trachea midline Respiratory/Chest: Normal breath sounds, CTA, No accessory muscle use Cardiovascular: S1, S2, No murmur Abdomen/GI:Soft, Non tender, Bowel sounds present Extremities/Musculoskelatal:normal inspection, no edema Neurologic/Psych:AAOX3, grossly no focal neurological deficits Skin: normal color, warm, multiple tattoos Results & Data Results & Data ([facility]) Vital Signs (Past 12 Hours) Vital Signs Temp Pulse Pulse Resp BP Pulse Ox 12/25/19 11:34 36.8 C 71 18 115/81 98 12/25/19 08:00 74 12/25/19 07:06 36.5 C 78 20 108/66 95 12/25/19 03:57 36.7 C 70 18 130/79 96 12/25/19 02:19 71 12/25/19 01:11 18 97 Laboratory Results Short CBC 12/25/19 Range/Units 05:44 WBC 12.96 H (4.8-10.8) K/uL Hgb 15.8 (14.0-18.0) g/dL Hct 43.1 (42-52) % Plt Count 218 (130-400) K/uL BMP 12/25/19 05:44 Sodium 136 Potassium 3.4 L Chloride 105 Carbon Dioxide 24 BUN 13 Creatinine 0.78 Glucose 213 H Calcium 8.5 Cardiac Enzymes 12/24/19 12/24/19 12/25/19 Range/Units 15:42 16:50 05:44 Troponin I Cancelled > 200.000 H* 22.200 H*
[2019-12-25] MEDS: HEPARIN SOD 5,000 UNIT/0.5 ML VIAL SQ SCH (21:25)
[2019-12-26 06:50] LABS: Hematocrit (blood only) 42.9 % (42-52); Hemoglobin 15.4 g/dL (14.0-18.0); Mean Corpuscular Hemoglobin 29.9 pg (25-34); Mean Corpuscular Hgb Conc 35.9 g/dL (32-36); Mean Corpuscular Volume 83.3 fL (80-100); Mean Platelet Volume 10.6 fL (7.4-10.4); Platelet Count 186 K/uL (130-400); RDW Coefficient of Variation 12.6 % (11.5-14.5); RDW Standard Deviation 38.1 fL (36.4-46.3); Red Blood Count 5.15 M/uL (4.7-6.1); White Blood Count 10.46 K/uL (4.8-10.8)
[2019-12-26 07:22] LABS: BUN Creatinine Ratio 18.8 (10-20); Calcium 8.7 mg/dl (8.5-10.1); Creatinine Clr Calc Pharmacy 146.6 ml/min; Potassium 3.6 mmol/L (3.5-5.1)
[2019-12-26] MEDS: INSULIN GLARGINE SOLOSTAR 100 UNITS/ML 3 ML PEN SC SCH (08:22)
[2019-12-26] MEDS: INSULIN ASPART 100 UNITS/ML 3 ML PEN SC SCH ×2 (08:23→12:24)
[2019-12-26] MEDS: TICAGRELOR 90 MG TAB PO SCH (08:25)
[2019-12-26] MEDS: METOPROLOL TARTRATE 25 MG TAB PO SCH (08:26)
[2019-12-26] MEDS: HEPARIN SOD 5,000 UNIT/0.5 ML VIAL SQ SCH (08:26)
[2019-12-26] MEDS: SERTRALINE HCL 50 MG TABLET PO SCH (08:28)
[2019-12-26] MEDS: PANTOprazole 40 MG TAB PO SCH (08:28)
[2019-12-26] MEDS: ASPIRIN 81 MG ECTAB PO SCH (08:28)
[2019-12-26] MEDS: lisinopriL 5 MG TAB PO SCH (08:36)
[2019-12-26] MEDS ORDERED: ATORVASTATIN 40 MG TAB PO SCH (09:00)
[2019-12-26] MEDS ORDERED: AMLODIPINE BESYLATE 5 MG TAB PO SCH (09:00)
--- NOTE | 2019-12-26 09:18 | Pharmacy Report ---
Pharmacy Glycemic Short Note 2 - Date of Service December 26, 2019 - Glycemic Short BSG Results (Last 24 hours): 12/25/19 12/25/19 12/25/19 11:05 16:28 20:53 Glucose POC Glucose 249 H 205 H 138 H 12/26/19 12/26/19 06:20 07:31 Glucose 165 H POC Glucose 171 H ASSESSMENT: 12/25: * POD #2 S/P cardiac catheterization * Patient received total of 103 units of insulin yesterday; 55 of basal, 48 prandial/correctional * Fasting this morning improved to 165 mg/dL, continuing to trend down * Discharge recommendations as below; will need close follow-up with outpatient provider to titrate insulin as needed 12/24: * POD #1 s/p cardiac catheterization, HbA1c was 12.0% on 12/23/2019 * Patient received total of 85 units of insulin yesterday, 40 basal + 45 bolus * BSGs ranged 225-242 mg/dL post-op * Fasting BSG improved this AM at 213 mg/dL * Will slightly increase basal insulin today per scale and tighten CF/CR 12/23: * Patient transfer from OSH with NSTEMI. New diagnosis of DM2. Per provider notes BSG at OSH >600 and had been given SQ insulin * Pharmacy consulted to help with glycemic management during admission. 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 morning - post laboratory phlebotomist BSG trending down at 242 / covered with novolog with lunch and diet resumed * Will add scale for Lantus this evening if BSGs remain elevated PLAN FOR INPATIENT GLYCEMIC CONTROL: * Basal insulin - BID * Lantus 20 units for BSG less than 180 mg/dL * Lantus 25 units for BSG 180-250 mg/dL * Lantus 30 units for BSG greater than 250 mg/dL * Bolus insulin * NovoLog per scale ACHS or Q6hrs while NPO * Goal Range: Low 110 mg/dL - High 140 mg/dL * Correction Factor: 15 mg/dL/unit * Nutritional / Prandial insulin per carb ratio of 1 unit per 5 grams CHO consumed PLAN FOR DISCHARGE: * A1c is greater than or equal to 10% consider triple therapy with metformin + basal insulin + (GLP1-RA OR prandial insulin). May need to continue additional antidiabetic agent based on patient specific factors (efficacy, hypo risk, weight gain/loss, side effects, cost) Recommend: oMetformin XR 500mg PO daily with evening meal. Typically the XR formulation of metformin is better tolerated than the immediate release formulation. Continue to titrate metformin dosing upwards as recommended. Dosage increases should be made in increments of 500 mg weekly, up to 2,000 mg/day PO, given in divided doses. Doses above 2000 mg/day may be better tolerated if divided and given 3 times per day with meals. 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 oBasal insulin: Glargine 35 units sq daily or if BID dosing preferred 17 units BID, This will need adjusted by outpatient provider GPL1RA: This will be based off of insurance coverage and patient preference of weekly vs daily injection OR Prandial insulin: Novolog 5-7 units with meals (should be followed and adjusted by outpatient provider) Correctional insulin per scale given in addition to prandial insulin above: Moderate dose SSI Blood Sugar 70-150 administer 0 units Blood Sugar 151-200 administer 2 units Blood Sugar 201-250 administer 4 units Blood Sugar 251-300 administer 6 units Blood Sugar 301-350 administer 8 units Blood Sugar 351-400 administer 10 units Blood Sugar >400 administer 12 units and call MD Support Patient Self-Management Healthy Lifestyle (diet, exercise, and smoking cessation) Disease self-management (SMBG) Prevention of complications (BP, Lipid goals, Immunizations) Consider outpatient Diabetes Self-Management Education & Support Most patients on multiple-dose insulin (MDI) should SMBG Prior to meals and snacks At bedtime Prior to exercise When they suspect low blood glucose After treating low blood glucose until they are normoglycemic Prior to critical tasks such as driving Occasionally postprandially
--- NOTE | 2019-12-26 10:08 | Cardiology Progress Note ---
Date of Service December 26, 2019 Assessment & Plan (1) NSTEMI (non-ST elevated myocardial infarction): (2) Diabetes mellitus: (3) HTN (hypertension): (4) Tobacco abuse: Continue dual antiplatelet therapy for minimum of 1 year post percutaneous intervention in the setting of myocardial infarction. Transition metoprolol tartrate to succinate formulation. Continue high intensity statin therapy. Discontinue amlodipine. Lisinopril 5 mg daily added secondary to newly diagnosed diabetes and ischemic cardiomyopathy. Patient appears compensated and euvolemic at this time. Recommend cardiac rehab when available. I discussed post cardiac catheterization activity restrictions as noted below. In approximately 5 days he will begin a regular walking program. Appropriate use of sublingual nitroglycerin reviewed. Diabetes management as per internal medicine. I will schedule close cardiac evaluation in 1 week via telemedicine. Post cardiac catheterization/PCI restrictions: ACTIVITY RECOMMENDATIONS: It is common to feel weak and fatigue for a few days. * Do not drive or operate any motorized equipment for the next three days. * Limit stair usage (2 or 3 trips a day only) for the next three days. * Do not lift anything heavier than 10 pounds for the next three days. * Do not engage in vigorous exercise or any sports for the next five days. * You may shower the day after your procedure, but do not immerse the area for three days. Cleanse the site gently with soap and water. SPECIAL CARE INSTRUCTIONS: * You may replace the pressure dressing or band-aid the morning after the procedure. * After your procedure, it is normal to have a small bruise or small lump at the site. Examine your site daily for any change in the bruise or lump, redness, swelling, drainage or numbness. Notify your doctor if any change. BLEEDING: * If there is a small amount of bleeding at the site, lie down and apply firm pressure with a clean cloth for ten minutes. When the bleeding stops, lie quietly keeping the procedure limb straight for six hours. Notify your doctor as soon as possible. * If the bleeding does not stop after ten minutes or if there is a large amount of bleeding or spurting, call 911 immediately. Continue to lie down and hold firm pressure until help arrives. SKIN IRRITATION: * You may experience some redness and/or swelling in the area where radiation was administered. If any skin irritation occurs, please contact your family physician. Subjective Patient seen and examined the bedside. Denies chest pain or shortness of breath. Remains in sinus rhythm on telemetry. No recurrent PVCs or ventricular tachycardia. Tolerating medications. Blood pressure well controlled. Anxious for discharge. Offers no concerns/complaints at this time. Review of Systems Review of Systems: All systems reviewed & are unremarkable except as noted in HPI & below Physical Exam Constitutional: well developed and + obese Eyes: + anicteric sclerae; no conjunctival abnormality and no scleral abnormality Respiratory: normal respiratory effort; no labored breathing, no retractions and does not use accessory muscles Auscultation: no diminished lung sounds, no crackles, no rales, no rhonchi and no wheezes Cardiovascular: Rate/Rhythm: regular rate and regular rhythm Heart Sounds: normal S1 and normal S2; no murmur and no cardiac rub Vessels: no JVD Extremities: + edema Gastrointestinal (Abdomen): Inspection/Auscultation: normal bowel sounds; abdomen not distended Percussion/Palpation: abdomen soft; abdomen nontender, no guarding and abdomen not rigid Musculoskeletal: Extremities: strength 5/5 throughout; no cyanosis and no clubbing Skin: no rashes, warm and dry Neurologic: CN's II-XI intact bilaterally and moves all extremities; no focal motor deficits Psychiatric: A+Ox3, euthymic affect Results & Data Vital Signs (Past 12 Hours) Vital Signs Temp Pulse Pulse Resp BP Pulse Ox 12/26/19 09:19 62 12/26/19 08:35 70 119/80 12/26/19 07:41 36.5 C 67 20 97/61 L 95 12/26/19 03:50 36.5 C 67 18 95/62 L 97 12/25/19 23:58 36.5 C 61 18 103/67 98 12/25/19 22:49 59 L 16 96 (1) Diabetes mellitus Diabetes mellitus type: type 2 Diabetes mellitus roasterman insulin use: without roasterman use Diabetes mellitus complication status: with hyperglycemia Qualified Code(s): E11.65 - Type 2 diabetes mellitus with hyperglycemia (2) HTN (hypertension) Hypertension type: essential hypertension Qualified Code(s): I10 - Essential (primary) hypertension
--- NOTE | 2019-12-26 11:08 | Hospitalist Progress Note ---
Date of Service December 26, 2019 Assessment & Plan (1) NSTEMI (non-ST elevated myocardial infarction): NSTEMI S/P PCI: KARISSA to proximal left anterior descending artery. POD #1 Risk factors: H/O HTN, HLP, Tobacco use disorder, DM II, Obesity Troponin:1.2>>14.1>>200>>22 EKG shows: Sinus rhythm with sinus arrhythmia, anterolateral infarct ECHO: Left ventricle systolic function is mildly reduced. Ejection fraction 45 to 50%. There is moderate size wall motion abnormality involving the a nteroseptal, anterior wall, inferior septum, and apex with hypokinesis to akinesis of the segments. There is mild mitral regurgitation. There is trace tricuspid regurgitation. Doppler findings do not suggest pulmonary hypertension. 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 Pharmacy consulted Continue Insulin therapy Monitor BGs Needs close follow up with PCP AARON Continue CPAP at bedtime GERD Continue PPI Mood disorder Continue Sertraline Tobacco use Disorder Refuses Nicotine patch Counselled to quit Lung Nodule Needs follow up as outpatient DVT Px: Heparin SQ Code Status Full code Disposition Plan to discharge home today Admission and Anticipated Discharge Date Admission Date: December 23, 2019 Subjective Patient is seen and examined at bedside No new complaints No events overnight Denies any Chest pain, SOB, nausea, dizziness, abd pain Discussed with cardiology today Review of Systems Review of Systems: All systems reviewed & are unremarkable except as noted in HPI & below Physical Exam Physical Exam: Physical Exam: Vitals signs as noted above General Appearance:Well built and nourished, no apparent distress Head: normocephalic, Atraumatic Eyes: normal inspection, EOMI, PERRL Neck: supple, Trachea midline Respiratory/Chest: Normal breath sounds, CTA, No accessory muscle use Cardiovascular: S1, S2, No murmur Abdomen/GI:Soft, Non tender, Bowel sounds present Extremities/Musculoskelatal:normal inspection, no edema Neurologic/Psych:AAOX3, grossly no focal neurological deficits Skin: normal color, warm, multiple tattoos Results & Data Results & Data (MN) Vital Signs (Past 12 Hours) Vital Signs Temp Pulse Pulse Resp BP Pulse Ox 12/26/19 11:00 37.0 C 64 19 106/74 98 12/26/19 09:19 62 12/26/19 08:35 70 119/80 12/26/19 07:41 36.5 C 67 20 97/61 L 95 12/26/19 03:50 36.5 C 67 18 95/62 L 97 12/25/19 23:58 36.5 C 61 18 103/67 98 Laboratory Results Short CBC 12/26/19 Range/Units 06:20 WBC 10.46 (4.8-10.8) K/uL Hgb 15.4 (14.0-18.0) g/dL Hct 42.9 (42-52) % Plt Count 186 (130-400) K/uL BMP 12/26/19 06:20 Sodium 137 Potassium 3.6 Chloride 105 Carbon Dioxide 25 BUN 16 Creatinine 0.83 Glucose 165 H Calcium 8.7
--- NOTE | 2019-12-26 11:33 | Discharge Summary ---
Date of Service December 26, 2019 Admission HPI Per Admitting Provider History obtained from patient and records. Medical history significant for hypertension, AARON on CPAP, GERD, mood disorder, ongoing tobacco abuse. Patient was taking apart PPI no at home this afternoon when he experienced substernal discomfort more severe than usual heartburn with radiation to both elbows with S OB and diaphoreses. No prior episodes in the past. Minimal relief with nitroglycerin given at [facility] emergency room. Initial EKG at [facility] ER without ST elevation. First troponin T was negative. Second troponin T was noted to be 24 (reference range 0-22). Serum glucose noted to be 604. Aspirin and subcutaneous insulin administered at the ER. IV heparin started at the ER for possible ACS. Patient transferred to [facility] for Cardiology services as per patient request. 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 Admission Exam Per Admitting Provider Physical Exam Physical Exam: GENERAL: Comfortable, obese, pleasant, no respiratory distress SKIN: Multiple tattoos, normal color, warm HEENT: Alopecia, pink palpebral conjunctivae, no ptosis, dry buccal mucosa NECK : Supple, short neck, no tenderness CHEST : Decreased breath sounds, expiratory wheezes that cleared on coughing, no tenderness HEART : RRR, no obvious murmurs ABDOMEN: Some distention, nontender EXTREMITIES : No LE swelling/tenderness, no other conspicuous deformities noted NEUROLOGIC : Coherent, no facial asymmetry, no other gross focality Principal Diagnosis Acute myocardial infarction Diabetes mellitus--new diagnosis Lung Nodule Discharge Data Allergies Allergy/AdvReac Type Severity Reaction Status Date / Time No Known Allergies Allergy Unknown Unverified 10/13/05 11:20 Consultations 12/24/19 00:27 Consult Cardiology Routine 12/24/19 12:49 Consult Cardiac Rehabilitation Routine Procedures Performed Operation Date: 12/24/19 11:30 Actual Procedures p Aspiration/PCI w/KARISSA for Stemi - Kale Hare MD s Cineradiography w/Routine Exam - Kale Hare MD s Cath, Left with Cors and Vent - Kale Hare MD ECHO: Left ventricle systolic function is mildly reduced. Ejection fraction 45 to 50%. There is moderate size wall motion abnormality involving the anteroseptal, anterior wall, inferior septum, and apex with hypokinesis to akinesis of the segments. There is mild mitral regurgitation. There is trace tricuspid regurgitation. Doppler findings do not suggest pulmonary hypertension. Cardiac cath: Findings Consistent with Post-Op Diagnosis 44-year-old gentleman, presented with stuttering chest discomfort, and EKG changes concerning for recent anterior wall myocardial infarction. Cardiac catheterization revealed 100% occluded proximal left anterior descending artery with faint collaterals noted from right coronary artery. PCI was performed to proximal left anterior descending artery using 4 mm x 18 mm Xience Shantell drug-eluting stent, this was postdilated with 4 mm NC balloon with excellent angiographic results and evangelical of DIOMEDES-3 flow in the distal part of left atrial descending artery. Left circumflex, diagonal vessels and right coronary artery only has minimal to mild diffuse disease of less than 30% severity. Ordered Studies 12/24/19 11:23 CL Cath Imgs for PACS use only Routine Hospital Course (1) NSTEMI (non-ST elevated myocardial infarction): NSTEMI S/P PCI: KARISSA to proximal left anterior descending artery. POD #1 Risk factors: H/O HTN, HLP, Tobacco use disorder, DM II, Obesity Troponin:1.2>>14.1>>200>>22 EKG shows: Sinus rhythm with sinus arrhythmia, anterolateral infarct ECHO: Left ventricle systolic function is mildly reduced. Ejection fraction 45 to 50%. There is moderate size wall motion abnormality involving the anteroseptal, anterior wall, inferior septum, and apex with hypokinesis to akinesis of the segments. There is mild mitral regurgitation. There is trace tricuspid regurgitation. Doppler findings do not suggest pulmonary hypertension. IV heparin discontinued Continue Aspirin, Brillinta, Lipitor, metoprolol, lisinopril Supplemental Oxygen PRN Appreciate Cardiology Input Cardiac Rehab as outpatient Counselled to quit smoking Needs follow-up with cardiology upon discharge Hypertension Continue Metoprolol, lisinopril Monitor BP Hyperlipidemia Continue Lipitor New diagnosis of DM II HbA1C: 12.0 peer educator/Glycemic Pharmacy consulted Continue Insulin therapy Monitor BGs Needs close follow up with PCP AARON Continue CPAP at bedtime GERD Continue PPI Mood disorder Continue Sertraline Tobacco use Disorder Refuses Nicotine patch Counselled to quit Lung Nodule Needs follow up as outpatient DVT Px: Heparin SQ Code Status Full code Disposition Plan to discharge home today Total Time Total Time Spent Total Time Spent (In Minutes): 42 minutes Total Time Includes: Examination of the Patient, Discharge Planning, Medication Reconciliation, Communication With Other Providers and Other Discharge Plan Discharge Items Patient Disposition: Home - Self-Care Reason For Visit: ACUTE CORONARY SYNDROME Discharge Diagnosis: Acute myocardial infarction Diabetes mellitus--new diagnosis Lung Nodule Activity: Per Instructions section Exercise/Sports: Wait until after follow-up appointment Non-emergency contact: Primary Care Provider and [employer] W[employer] Consultant Call non-emergency contact if: you have any medication questions, your symptoms worsen, your pain is not controlled, your pain is worsening, your pain is unusual for you, your pain is concerning for you and you have a fever Follow-up/Referrals: Mike Gaitan MD [Primary Care Provider] - 12/29/19 9:45 am Diet: Carb Consistent or DM2 and Heart Healthy Addtl Attending Provider Instructions: Follow-up with your primary care physician on December 29, 2019 at 9:45AM Follow-up with your atomizer assembler Dr. Barraza on January 08, 2020 at 9:45 AM Discussed with your physician for adjustment of your diabetic medications as advised. Check your blood sugar levels regularly as advised Quit smoking tobacco as Instructed Seek immediate medical attention if your symptoms reoccur or worsen Home Care: * Take your medications exactly as directed. Don't skip doses. * Remember that recovery after a heart attack takes time. Plan to rest for at lease 4-8 weeks while you recover. Then return to normal activity when your doctor says it's okay. * Ask your doctor about joining a heart rehabilitation program. * Tell your doctor if you are feeling depressed. Feelings of sadness are common after a heart attack, but it is important that you speak to someone if you are feeling overwhelmed by these feelings. * If you are having chest pain, call 911 for an ambulance. Do NOT drive yourself to the hospital. * Ask your family members to learn CPR. * Learn to take your own blood pressure and pulse. Keep a record of your results. Ask your doctor when you should seek emergency medical attention. He or she will tell you which blood pressure reading is dangerous. Lifestyle Changes: * Maintain a healthy weight. Get help to lose any extra pounds. * Cut back on salt. * Limit canned, dried, packaged, and fast foods. * Don't add salt to your food. * Season foods with herbs instead of salt when you cook. * Break the smoking habit. Enroll in a stop-smoking program to improve your chances of success. * Limit fatty foods. * Ask your doctor about having your lipid levels checked regularly. * Build up your activity according to your doctor's recommendation. * Ask your doctor when it's okay to resume sexual activity. * Tell your doctor about any erectile dysfunction (ED) medication you are taking. Some ED medications are not safe if you take certain heart medications. * Try to manage stress. Follow Up: It is important for you to keep your follow up appointments with your medical provider. Addtl Hand Outside Cutter Provider Instructions: ACTIVITY RECOMMENDATIONS: It is common to feel weak and fatigue for a few days. * Do not drive or operate any motorized equipment for the next three days. * Limit stair usage (2 or 3 trips a day only) for the next three days. * Do not lift anything heavier than 10 pounds for the next three days. * Do not engage in vigorous exercise or any sports for the next five days. * You may shower the day after your procedure, but do not immerse the area for three days. Cleanse the site gently with soap and water. SPECIAL CARE INSTRUCTIONS: * You may replace the pressure dressing or band-aid the morning after the procedure. * After your procedure, it is normal to have a small bruise or small lump at the site. Examine your site daily for any change in the bruise or lump, redness, swelling, drainage or numbness. Notify your doctor if any change. BLEEDING: * If there is a small amount of bleeding at the site, lie down and apply firm pressure with a clean cloth for ten minutes. When the bleeding stops, lie quietly keeping the procedure limb straight for six hours. Notify your doctor as soon as possible. * If the bleeding does not stop after ten minutes or if there is a large amount of bleeding or spurting, call 911 immediately. Continue to lie down and hold firm pressure until help arrives. SKIN IRRITATION: * You may experience some redness and/or swelling in the area where radiation was administered. If any skin irritation occurs, please contact your family physician. Pending Studies at Discharge: No Stand-Alone Forms: [facility], Smoking Cessation Medications and DC Order Prescriptions: New atorvastatin 40 mg Tablet 80 mg PO QAM 30 Days Qty: 60 RF: 0 aspirin 81 mg Tablet,Delayed Release (Dr/Ec) 81 mg PO QAM Qty: 30 RF: 1 lisinopril [Zestril] 5 mg Tablet 5 mg PO QAM Qty: 30 RF: 0 Lantus Solostar U-100 Insulin 100 unit/mL (3 mL) Insulin Pen 17 units SC BID 30 Days Qty: 10.2 RF: 0 Brilinta 90 mg Tablet 90 mg PO BID 30 Days Qty: 60 RF: 0 metformin 500 mg tablet extended release 24hr 500 mg PO DAILY Qty: 30 RF: 0 metoprolol succinate 50 mg tablet extended release 24 hr 50 mg PO DAILY Qty: 30 RF: 0 Continued omeprazole 20 mg Capsule,Delayed Release(Dr/Ec) 20 mg PO DAILY RF: 0 sertraline 50 mg Tablet 50 mg PO DAILY RF: 0 Discontinued amlodipine 10 mg Tablet 10 mg PO DAILY RF: 0 Discharge Orders: Discharge Order (Routine); Ordered 12/26/19 Ordered By: Kenny Hopkins/Other Patient Handouts: Diabetes and Heart Disease, Diabetes Mechanical Integrity Engineer Complications, Hyperglycemia, Hypoglycemia, Diabetes Healthy Meals, Diabetes Exercise Benefits, Discharge Instructions Using Injection Pens, ED Cardiac Cath Post Bleed Hematom, Atorvastatin tablets, Metformin tablets, Ticagrelor oral tablet, Insulin Glargine injection, Metoprolol extended-release tablets, Aspirin ASA chewable tablets, Lisinopril tablets Admission Data Admit Date/Time: 12/23/19 23:09 Attending Provider: Kenny Santillan Admit Provider: Lamine Reynoso Primary Care Provider: Mike Gaitan I. Other Providers: Rajat Lim Other Interventions: Discharge Summary Assessment (RN) Last Done: 12/26/19 11:37 DC Date/Time DO NOT enter until pt leaves facility: 12/26/19 13:48
== END 2019-12-26 13:48 | disposition home or self-care (01) | DRG 247 ==
LOC: 2S 23:09